=== PATIENT | female | born 1985 | race Caucasian/White ===

== ENCOUNTER 2018-12-23 17:06 | Emergency (ER) | payer OTHER ==
[2018-12-23 17:21] VITALS: BP 130/64; PULSE 105; TEMP 98.2; BMI 24.5
--- NOTE | 2018-12-23 17:24 | PDOC ---
Rapid Medical Evaluation Time Seen by Provider: 12/23/18 17:16 Medical Evaluation: Allergies Allergy/AdvReac Type Severity Reaction Status Date / Time Penicillins Allergy Verified 03/25/13 23:41 12/23/18 17:17 I have performed a brief in-person evaluation of this patient. The patient presents with a chief complaint of: dysuria w/ b/l flank pain, fever and nausea x 1 week, seen in UC 3 days for same and dx w/ UTI, on cipro. Returned to UC today w/ persistent sxs. Of note I called [facility] and told ucx from 3 days ago showed "No Growth". Has h/o gallstones Pertinent physical exam findings:well jeffery w/ HR 105, w/ unremarkable exam I have ordered the following:labs/urine The patient will proceed to the ED for further evaluation. 12/23/18 17:24 12/23/18 17:27 Discharge Disposition - Diagnosis Dysuria - Referrals - Patient Instructions - Post Discharge Activity
[2018-12-23 17:46] LABS: BASO % 0.5 % (0-2.0); HEMATOCRIT 42.6 % (32.4-45.2); HEMOGLOBIN 14.5 GM/dL (10.7-15.3); LYMPH % 21.2 % (8-40); MCH 32.3 pg (25.7-33.7); MEAN PLT VOLUME 9.7 fl (7.5-11.1); MONO % 11.6 % (3.8-10.2); NEUT % 63.7 % (42.8-82.8); PLATELET COUNT 197 K/MM3 (134-434); RBC 4.49 M/mm3 (3.60-5.2); RDW 12.7 % (11.6-15.6); WHITE BLOOD COUNT 3.5 K/mm3 (4.0-10.0)
[2018-12-23 18:09] LABS: BILIRUBIN,TOTAL 0.2 mg/dL (0.2-1); CALCIUM 9.3 mg/dL (8.5-10.1); CREATININE 0.8 mg/dL (0.55-1.3); POTASSIUM 4.1 mmol/L (3.5-5.1); TOT PROT 7.4 g/dl (6.4-8.2)
--- NOTE | 2018-12-23 19:24 | PDOC ---
History of Present Illness - General Chief Complaint: Urinary Problem Stated Complaint: SENT BY PCP Time Seen by Provider: 12/23/18 17:16 History Source: Patient - History of Present Illness Initial Comments: 12/23/18 19:17 33 year old female currently on cipro for pyelonephritis for the last 3 days reports now sinus congestion, cough and bodyaches, lower back pain and suprapubic pain send for evaluation by arianne CORBETT. patient yesterday with low grade tmax 100. today afebrile. denies NVD, chest discomfort, abdominal pain LMP: 12/2018. Past History - Past Medical History Allergies/Adverse Reactions: Allergies Allergy/AdvReac Type Severity Reaction Status Date / Time Penicillins Allergy Verified 12/23/18 17:17 Home Medications: Ambulatory Orders Guaifenesin [Mucinex] 600 mg PO BID PRN #14 tab.er.12h 12/23/18 Ibuprofen 400 mg PO QID PRN #20 tablet 12/23/18 COPD: No - Immunization History Immunization Up to Date: Yes - Suicide/Smoking/Psychosocial Hx Smoking Status: No Smoking History: Never smoked Number of Cigarettes Smoked Daily: 0 Hx Alcohol Use: No Drug/Substance Use Hx: No Review of Systems - Review of Systems Able to Perform ROS?: Yes Is the patient limited Ethiopian proficient: No *Physical Exam - Vital Signs Last Vital Signs Temp Pulse Resp BP Pulse Ox 98.2 F 105 H 18 130/64 97 12/23/18 17:19 12/23/18 17:19 12/23/18 17:19 12/23/18 17:19 12/23/18 17:19 - Physical Exam General Appearance: Yes: Appropriately Dressed HEENT: positive: Pharyngeal Erythema, Nasal Congestion Respiratory/Chest: positive: Lungs Clear, Normal Breath Sounds Cardiovascular: positive: Tachycardia Gastrointestinal/Abdominal: positive: Normal Bowel Sounds, Tender (suprapubic tenderness), Soft Extremity: positive: Normal Capillary Refill, Normal Inspection, Normal Range of Motion Integumentary: positive: Normal Color, Dry, Warm Neurologic: positive: Fully Oriented, Alert ED Treatment Course - LABORATORY CBC & Chemistry Diagram: 12/23/18 17:35 12/23/18 17:35 - ADDITIONAL ORDERS Additional order review: Laboratory Results 12/23/18 12/23/18 12/23/18 17:44 17:44 17:35 Sodium 137 Potassium 4.1 Chloride 102 Carbon Dioxide 29 Anion Gap 7 L BUN 13 Creatinine 0.8 Est GFR (CKD-EPI)AfAm 113.86 Est GFR (CKD-EPI)NonAf 98.24 Random Glucose 102 Calcium 9.3 Total Bilirubin 0.2 AST 24 ALT 34 Alkaline Phosphatase 52 Total Protein 7.4 Albumin 4.0 Urine Color Yellow Cancelled Urine Appearance Clear Cancelled Urine pH Cancelled Urine pH (Auto) 5.0 Ur Specific Millis Cancelled Specific Millis (Auto) 1.015 Urine Protein Cancelled Urine Protein (Auto) Negative Urine Glucose (UA) Cancelled Glucose (UA)(Auto) Negative Urine Ketones Cancelled Urine Ketones (Auto) Negative Urine Blood Cancelled Urine Blood (Auto) Trace-lysed Urine Nitrite Cancelled Urine Nitrite (Auto) Negative Urine Bilirubin Negative Cancelled Urine Urobilinogen Cancelled Urine Urobilinogen (Auto) 0.2 Ur Leukocyte Esterase Cancelled Leukocyte Esterase (Auto) Negative Urine WBC (Auto) Cancelled Urine RBC (Auto) Cancelled Urine Casts (Auto) Cancelled U Pathogenic Cast Auto Cancelled U Epithel Cells (Auto) Cancelled U Sm Round Cell (Auto) Cancelled Urine Crystals (Auto) Cancelled Urine Bacteria (Auto) Cancelled Urine Yeast (Auto) Cancelled Urine HCG, Qual Negative 12/23/18 17:35 RBC 4.49 MCV 95.0 MCHC 34.0 RDW 12.7 MPV 9.7 Neutrophils % 63.7 Lymphocytes % 21.2 Monocytes % 11.6 H Eosinophils % 3.0 Basophils % 0.5 Medical Decision Making - Medical Decision Making 12/23/18 20:44 A: URI with cough; UTI P: rapid strep labs UA UCX *DC/Admit/Observation/Transfer Diagnosis at time of Disposition: URI with cough and congestion, Dysuria - Discharge Dispostion Disposition: HOME - Prescriptions Prescriptions: Guaifenesin [Mucinex] 600 mg PO BID PRN #14 tab.er.12h PRN Reason: Cough Ibuprofen 400 mg PO QID PRN #20 tablet PRN Reason: Pain - Referrals - Patient Instructions Printed Discharge Instructions: DI for Sinusitis Additional Instructions: Drink plenty of fluids. Continue taking Cipro as prescribed by raianne Bella You may take ibuprofen every 6 hours for body aches and pain. We will call you if you urine culture requires a you take a different antibiotics. Your labs today did not show any signs of infection. It is important to follow-up with your doctor as soon as possible. You were given a prescription for Mucinex, for nasal congestion. Sinus congestion is usually caused by a viral illness you may try NyQuil. Use package instructions You may return to the emergency room for any worsening symptoms. - Post Discharge Activity Forms/Work/School Notes: Back to Work
[2018-12-23] MEDS ORDERED: IBUPROFEN 600 MG TABLET (FP) PO ONE ×2 (20:43→20:58)
== END 2018-12-23 21:46 | disposition home or self-care (01) ==
LOC: JER 17:06 → EDSEX 17:06 → JER 21:46
DX: J06.9 Acute upper respiratory infection, unspecified (principal); R05 Cough; R09.89 Other specified symptoms and signs involving the circulatory and respiratory systems; R30.0 Dysuria
CPT/HCPCS: 36415; 80053; 81003; 84703; 85025; 87070; 87086; 87880; 99281-25

== ENCOUNTER 2019-05-22 08:26 | Emergency (ER) | payer BC, OTHER ==
--- NOTE | 2019-05-22 08:46 | RAPID ---
<Yuniel Valenzuela - Last Filed: 05/22/19 14:35> Physical Examination Vital Signs: Vital Signs Temperature 97.9 F 05/22/19 08:32 Pulse Rate 80 05/22/19 08:32 Respiratory Rate 20 05/22/19 08:32 Blood Pressure 105/56 L 05/22/19 08:32 O2 Sat by Pulse Oximetry (%) 95 05/22/19 08:32 Findings/Remarks: RR called to central registration for patient complaint of nausea, lightheadedness. States that pt did not have breakfast in the AM. Was accompanying Constitutional: Yes: Calm HENT: Yes: WNL Neck: Yes: Trachea Midline. No: Lymphadenopathy Cardiovascular: Yes: Regular Rate and Rhythm. No: Murmur Respiratory: Yes: CTA Bilaterally. No: Accessory Muscle Use, Rales, Rhonchi Gastrointestinal: Yes: Soft. No: Tenderness, Rebound Extremities: No: Calf Tenderness Edema: No Peripheral Pulses: Left Radial: 2+, Right Radial: 2+ Neurological: Yes: Alert, Oriented. No: Confusion, Lethargy ...Motor Strength: WNL Psychiatric: Yes: Alert, Oriented Rapid Response - Rapid Response Assessment: 33F with complaint of lightheadedness that was resolving when the rapid response was called. -EKG: reviewed -- NSR -recommend CBC, BMP -- unremarkable -orthostatics -- neg <Kuldeep Jha - Last Filed: 05/24/19 10:21> Physical Examination Vital Signs: 30 mins critical care time; present for entirety of RR and personally verified all exam findings and historical information. Labs: CBC, BMP 05/22/19 09:30 05/22/19 09:30
[2019-05-22] MEDS ORDERED: SODIUM CHLORIDE 0.9% 500 ML INFUS.BAG IV ONE (09:02)
--- NOTE | 2019-05-22 09:02 | PDOC ---
History of Present Illness - General Chief Complaint: Syncope/Near Syncope Stated Complaint: DIZZINESS Time Seen by Provider: 05/22/19 08:47 Past History - Past Medical History Allergies/Adverse Reactions: Allergies Allergy/AdvReac Type Severity Reaction Status Date / Time amoxicillin Allergy Verified 08/21/16 14:45 Penicillins Allergy Verified 12/23/18 17:17 Home Medications: Ambulatory Orders Escitalopram Oxalate [Lexapro -] 20 mg PO DAILY 05/22/19 Progesterone, Micronized [Progesterone] mg PO DAILY 05/22/19 Spironolactone mg PO DAILY 05/22/19 Anemia: No Cardiac Disorders: No COPD: No - Immunization History Immunization Up to Date: Yes - Psycho Social/Smoking Cessation Hx Smoking Status: No Smoking History: Never smoked Have you smoked in the past 12 months: No Number of Cigarettes Smoked Daily: 0 Information on smoking cessation initiated: No Hx Alcohol Use: No Drug/Substance Use Hx: No Substance Use Type: None *Physical Exam - Vital Signs Last Vital Signs Temp Pulse Resp BP Pulse Ox 97.9 F 80 20 105/56 L 95 05/22/19 08:32 05/22/19 08:32 05/22/19 08:32 05/22/19 08:32 05/22/19 08:32 ED Treatment Course - LABORATORY CBC & Chemistry Diagram: 05/22/19 09:30 05/22/19 09:30 Medical Decision Making - Medical Decision Making 05/22/19 09:02 HPI: 33yo F hx PCOS on spironolactone and 10 days of progesterone 2 weeks ago, and MDD on Lexapro, presents by Rapid Response c/o 10min episode of nausea, lightheadedness, hot feeling, and heart racing at 0820 after running to car and back to hospital, sudden onset, resolved by sitting down, exactly the same as prior episodes years ago and 2x this summer (though she did actually experience syncope this summer), told its due to her low blood pressure. Mother and brother have same episodes due to blood pressure. Denies LOC, head injury, headache, vertigo, seizure-like activity including urinary incontinence or tongue biting, confusion, CP, shortness of breath, diaphoresis, abdominal pain, back pain, dysuria, blood in stool, D/C, F/C, vomiting, weakness, numbness/ tingling, vision changes, sick contacts, recent travel, estrogen/OCP use, recent surgeries, hx PE/DVT, hemoptysis, leg swelling, calf tenderness, FHx of sudden cardiac or arrythmia. Denies . Has not eaten or drank water today. Denies stress or anxiety, in hospital for CT scan for father. ROS: Constitutional: Negative for chills, fever, fatigue, diaphoresis. HENT: Negative for sore throat, rhinorrhea, congestion. Eyes: Negative for visual disturbance. Respiratory: Negative for shortness of breath, cough, and wheezing. Cardiovascular: Positive for heart racing. Negative for chest pain and leg swelling. Gastrointestinal: Positive for nausea. Negative for abdominal pain, blood in stool, constipation, diarrhea, and vomiting. Genitourinary: Negative for dysuria, flank pain, and hematuria. Musculoskeletal: Negative for myalgias, back pain, and neck pain. Skin: Negative for rash. Neurological: Positive for light-headedness. Negative for vertigo, syncope, weakness, numbness and headaches. Psychiatric/Behavioral: Negative for behavioral problems and confusion. PE: Gen: Alert, NAD, comfortable-appearing. HEENT: PERRL, EOMI, MMM, NCAT. No conjunctival pallor. Sclera are non-icteric. Oropharynx is clear. CV: Regular rate and rhythm. No murmurs, rubs, or gallops. PULM: No resp distress. CTAB, no wheezes, rales, or rhonchi. ABD: soft, NT/ND, no rebound tenderness or guarding, no CVA tenderness. BACK: No TTP of c/t/l-spine. No step-offs or deformities. MSK: No bony deformities. 2+ pulses in all extremities. NEURO: AAOx3. PERRL. CN 2-12 intact. 5/5 strength in all extremities. Sensation to light touch intact in all extremities. No pronator drift. No dysmetria. No dysdiadochokinesia. No abnormal nystagmus. No skew deviation. Normal gait. EXTREMITIES: No cyanosis. No clubbing. No edema. No calf tenderness. PSYCH: Normal mood and thought pattern. SKIN: Warm and dry. Normal capillary refill. No rashes. No jaundice. MDM: 33yo F hx PCOS on spironolactone and 10 days of progesterone 2 weeks ago, and MDD on Lexapro, presents by Rapid Response with 10min episode of nausea, lightheadedness, hot feeling, and heart racing at 0820 after exertion. Asymptomatic now. Hemodynamically stable but BP 105/56, afebrile, neurologically intact. Presyncope most consistent with vasovagal or orthostatic presyncope - orthostatic VS and IVF. Low concern for cardiac etiology due to lack of CP, SOB, FHx, or diaphoresis, but assess and r/o ACS/WV or arrythmias ( WPW, LGL, Brugada, long/short QT interval, HOCM) with EKG. No SOB, CP, or tachycardia concerning for PE, Wells 0, PERC rules out PE - no further testing indicated for PE. Also consider infectious etiologies, anemia, , or metabolic derangements - r/o w/CMP, CBC, and urine . No seizure-like activity, head injury, or LOC. -EKG -CBC, BMP, Upreg -Orthostatic VS -1L NS -Dispo: likely d/c home pending w/u 05/22/19 09:30 EKG reviewed: NSR 72bpm, QTc 416, MT interval 160, normal axis, no TWIs, no ST elevations or depressions. No evidence of arrythmia, ischemia, Muñiz-Parkinson- White (delta wave), Oohv-Kggacb-Vfatwq (shortened MT interval), Brugada syndrome , long or short QT interval, HOCM. 05/22/19 10:06 Labs reviewed. No concerning findings. Orthostatic BPs: supine 96/64, sit 98/58, stand 102/65 05/22/19 10:56 Upreg negative. Pt asymptomatic since arrival in ED. Will dc home with PCP f/u. Return precautions given. Pt understands all dc instructions and all questions were answered. Discharge - Discharge Information Problems reviewed: Yes Clinical Impression/Diagnosis: Pre-syncope Condition: Improved Disposition: HOME - Admission No - Follow up/Referral - Patient Discharge Instructions Patient Printed Discharge Instructions: DI for Syncope in Adults (Fainting) Additional Instructions: You have been seen in the Emergency Department for your episode of dizziness and near-fainting (pre-syncope). Your EKG and labs show no signs concerning for an emergent condition such as a heart attack, abnormal heart rhythm, anemia, or infection. The cause of your episode is uncertain but it was most likely what's called vasovagal (pre)syncope - see below for more information on this. Follow-up with your primary care doctor within 1 week for further evaluation and check-up. Return to the ED immediately if you experience chest pain, difficulty breathing , dizziness, fainting, vomiting, or any other new or worsening symptom. Vasovagal syncope (fainting): To remain conscious, a supply of oxygen-rich blood must be pumped to the brain without interruption. If the brain is deprived of this blood supply, even for a brief period, loss of consciousness (passing out) will occur. One of the most common types of syncope is called vasovagal syncope, which is the most common cause of reflex syncope. A variety of conditions can trigger vasovagal syncope, including physical or psychological stress, dehydration, bleeding, or pain. The heart rate may slow dramatically at the time of the faint, and the blood vessels (mainly the veins) in the body expand, causing blood to pool in the lower extremities and the bowels, resulting in less blood return to the heart and a low blood pressure (hypotension). This causes a decrease in blood flow to the brain. In some cases, vasovagal syncope is triggered by an emotional response to a stimulus, such as fear of injury, heat exposure, the sight of blood, or extreme pain. In other cases, it is caused by abnormal nervous system responses to activities such as urinating, having a bowel movement, coughing, or swallowing. In still other cases, no trigger can be identified. In most cases of vasovagal syncope, you have some warning that you are near fainting. These signs include dizziness, feeling hot or cold, nausea, pale skin , "tunnel-like" vision, disturbance of hearing, and profuse sweating. After the episode, symptoms may continue because of continued low blood pressure. Some people feel extremely tired. - Post Discharge Activity
[2019-05-22 09:40] LABS: BASO % 0.6 % (0-2.0); EOS % 2.2 % (0-4.5); HEMATOCRIT 41.5 % (32.4-45.2); HEMOGLOBIN 14.1 GM/dL (10.7-15.3); LYMPH % 23.2 % (8-40); MCH 32.2 pg (25.7-33.7); MEAN CELL VOLUME 94.7 fl (80-96); MEAN PLT VOLUME 9.7 fl (7.5-11.1); MONO % 6.6 % (3.8-10.2); NEUT % 67.4 % (42.8-82.8); PLATELET COUNT 260 K/MM3 (134-434); RBC 4.38 M/mm3 (3.60-5.2); RDW 12.4 % (11.6-15.6); WHITE BLOOD COUNT 6.4 K/mm3 (4.0-10.0)
[2019-05-22 09:59] VITALS: TEMP 97.9; BMI 24.5
[2019-05-22 10:05] LABS: BLOOD UREA NITROGEN 19.2 mg/dL (7-18); CALCIUM 8.8 mg/dL (8.5-10.1); CREATININE 0.8 mg/dL (0.55-1.3); POTASSIUM 3.9 mmol/L (3.5-5.1)
--- NOTE | 2019-05-22 11:17 | PDOC ---
Attending Attestation - Resident Resident Name: Debby Berger - ED Attending Attestation I have performed the following: I have examined & evaluated the patient, The case was reviewed & discussed with the resident, I agree w/resident's findings & plan, Exceptions are as noted - HPI HPI: 05/22/19 14:45 33 years old with near syncopal episode history of similar approximately 2-3 episodes per year. Now asymptomatic - Physicial Exam PE: 05/22/19 11:09 Vitals: Triage Vital signs reviewed General Appearance: No acute distress, well nourished well developed, Head: Atraumatic, Eyes: Pupils equal reactive round, extraocular movement intact Chest Wall: Nontender Cardiac: Regular rate and rhythym, no murmurs, no rubs, no gallops, Lungs: Clear to auscultation bilateral, good air movement bilaterally, Abdomen: Soft, non distended, normal bowel sounds, non tender to palpation Extremities: Full range of motion to all extremities, no cyanosis, clubbing, or edema Skin: Warm and dry, no rashes or lesions, no rash, no petechiae Neuro: AOX3; cranial Nerves 2-12 grossly intact, strength intact to all extremities, sensation intact to all extremities, gait normal Psych: Normal mood, normal affect - Medical Decision Making 05/22/19 11:09 Well-appearing no apparent distress emergency room with near syncopal event patient has approximately 2-3 of these episodes every year where she feels dizzy lightheaded and warm has seen her doctor for this in the past was told that her blood pressure is borderline low Presented to the emergency department after near syncopal event her EKG is nonischemic it demonstrates no evidence of WPW Brugada or prolonged QT it is sinus rhythm at 72 bpm with normal intervals Laboratory analysis unremarkable she looks and feels well is asking to go home she will follow-up with her doctor Findings, the need for follow-up and strict return instructions discussed with patient. Also Heart Score/ECG Review - ECG Impressions Comment:: 05/22/19 14:39 EKG performed at 839 demonstrates normal sinus rhythm no ST elevations or T wave inversions no evidence of WPW, Brugada, prolonged QT Interpreted by me.
[2019-05-22 11:40] VITALS: BP 99/53; PULSE 72
--- NOTE | 2019-05-22 12:09 | EKG ---
Test Reason : Blood Pressure : / mmHG Vent. Rate : 072 BPM Atrial Rate : 072 BPM P-R Int : 160 ms QRS Dur : 088 ms QT Int : 380 ms P-R-T Axes : 063 075 037 degrees QTc Int : 416 ms NORMAL SINUS RHYTHM NORMAL ECG NO PREVIOUS ECGS AVAILABLE Confirmed by ADRI MCNAIR MD ([id number]) on 05/22/2019 12:09:29 PM Referred By: Confirmed By:ADRI MCNAIR MD
== END 2019-05-22 11:51 | disposition home or self-care (01) ==
LOC: JER 08:26
PROC: 3E0337Z Introduction of Electrolytic and Water Balance Substance into Peripheral Vein, Percutaneous Approach (ICD-10-PCS; principal; 2019-05-22)
DX: R55 Syncope and collapse (principal); Z88.8 Allergy status to other drugs, medicaments and biological substances; Z88.0 Allergy status to penicillin
CPT/HCPCS: 36415; 80048; 84703; 85025; 93005; 93010; 99284-25

== ENCOUNTER 2021-06-16 23:10 | Emergency (ER) | payer BC, OTHER ==
[2021-06-16] MEDS ORDERED: ACETAMINOPHEN 1000 MG/100 ML VIAL IVPB ONE (23:34)
[2021-06-16 23:38] VITALS: BP 115/55; PULSE 80; TEMP 98.7; BMI 24.5
[2021-06-16] MEDS ORDERED: ACETAMINOPHEN INJECTION 100 ML IVPB ONE (23:39)
[2021-06-17 00:36] LABS: BASO % 0.3 % (0-2.0); EOS % 1.5 % (0-4.5); HEMATOCRIT 36.9 % (32.4-45.2); HEMOGLOBIN 12.8 GM/dL (10.7-15.3); LYMPH % 25.7 % (8-40); MCH 31.8 pg (25.7-33.7); MCHC 34.6 g/dl (32.0-36.0); MEAN CELL VOLUME 91.9 fl (80-96); MEAN PLT VOLUME 9.4 fl (7.5-11.1); MONO % 7.1 % (3.8-10.2); NEUT % 65.4 % (42.8-82.8); PLATELET COUNT 305 10^3/uL (134-434); RBC 4.02 M/mm3 (3.60-5.2); RDW 14.6 % (11.6-15.6); WHITE BLOOD COUNT 7.4 K/mm3 (4.0-10.0)
[2021-06-17 01:02] LABS: EPI CELLS >36 /uL (0-25.1); HYALINE CASTS 4 /uL (0-3.1); URINE APPEARANCE CLOUDY; URINE BACTERIA 918 /uL (0-1359); URINE BILIRUBIN NEGATIVE (NEGATIVE); URINE COLOR YELLOW; URINE GLUCOSE (UA) NEGATIVE (NEGATIVE); URINE KETONE NEGATIVE (NEGATIVE); URINE LEUK ESTERASE 1+ (NEGATIVE); URINE NITRITE NEGATIVE (NEGATIVE); URINE PROTEIN NEGATIVE (NEGATIVE); URINE RBC 7 /uL (0-23.9); URINE UROBILINOGEN 0.2 mg/dL (0.2-1.0); URINE WBC 69 /uL (0-25.8)
[2021-06-17 01:43] LABS: ALBUMIN 3.7 g/dl (3.4-5.0); BILIRUBIN,TOTAL 0.2 mg/dL (0.2-1); BLOOD UREA NITROGEN 13.6 mg/dL (7-18); CALCIUM 9.1 mg/dL (8.5-10.1); CREATININE 0.7 mg/dL (0.55-1.3); TOT PROT 7.5 g/dl (6.4-8.2)
[2021-06-17] MEDS ORDERED: SULFAMETHOXAZOLE/TRIMETHOPRIM 800MG/160MG D.S. TABLET PO ONE (02:02)
[2021-06-17] MEDS ORDERED: SULFAMETHOXAZOLE/TRIMETHOPRIM 800MG/160MG D.S. TABLET ONE (02:05)
== END 2021-06-17 02:07 | disposition home or self-care (01) ==
LOC: FER 23:10
PROC: 3E0333Z Introduction of Anti-inflammatory into Peripheral Vein, Percutaneous Approach (ICD-10-PCS; principal; 2021-06-16)
DX: N39.0 Urinary tract infection, site not specified (principal); R07.9 Chest pain, unspecified
CPT/HCPCS: 36415; 71046-TC-FY; 80053; 81003; 84703; 85025; 87086; 96374; 99284-25; J0131

== ENCOUNTER 2021-07-25 09:25 | Day surgery (SDC) | payer BC, OTHER ==
[2021-07-25] MEDS ORDERED: SODIUM CHLORIDE 1,000 ML IV STA (09:58)
[2021-07-25] MEDS ORDERED: METOCLOPRAMIDE HCL INJECTION 10 MG/2 ML VIAL IVPB ONE (09:58)
[2021-07-25] MEDS ORDERED: FAMOTIDINE 20 MG/50 ML IVPB 20 MG/50 ML MG IVPB ONE ×2 (09:58→10:34)
[2021-07-25] MEDS ORDERED: ACETAMINOPHEN 1000 MG/100 ML VIAL IVPB ONE (09:58)
[2021-07-25] MEDS ORDERED: METOCLOPRAMIDE HCL INJECTION 10 MG/2 ML VIAL ONE (10:33)
[2021-07-25] MEDS ORDERED: ACETAMINOPHEN INJECTION 100 ML IVPB ONE (10:34)
[2021-07-25 11:48] LABS: URINE APPEARANCE CLOUDY; URINE BILIRUBIN NEGATIVE (NEGATIVE); URINE COLOR YELLOW; URINE GLUCOSE (UA) NEGATIVE (NEGATIVE); URINE KETONE NEGATIVE (NEGATIVE); URINE LEUK ESTERASE NEGATIVE (NEGATIVE); URINE NITRITE NEGATIVE (NEGATIVE); URINE PROTEIN NEGATIVE (NEGATIVE); URINE UROBILINOGEN 0.2 mg/dL (0.2-1.0)
[2021-07-25 11:54] LABS: BASO % 0.3 % (0-2.0); EOS % 0.6 % (0-4.5); HEMATOCRIT 38.4 % (32.4-45.2); HEMOGLOBIN 12.9 GM/dL (10.7-15.3); LYMPH % 8.7 % (8-40); MCHC 33.6 g/dl (32.0-36.0); MEAN CELL VOLUME 95.4 fl (80-96); MEAN PLT VOLUME 9.7 fl (7.5-11.1); MONO % 4.9 % (3.8-10.2); NEUT % 85.5 % (42.8-82.8); PLATELET COUNT 247 10^3/uL (134-434); RBC 4.02 M/mm3 (3.60-5.2); RDW 15.6 % (11.6-15.6); WHITE BLOOD COUNT 9.9 K/mm3 (4.0-10.0)
[2021-07-25 12:15] LABS: ALBUMIN 3.8 g/dl (3.4-5.0); BLOOD UREA NITROGEN 14.4 mg/dL (7-18); CALCIUM 8.9 mg/dL (8.5-10.1)
[2021-07-25 12:17] LABS: CREATININE 0.6 mg/dL (0.55-1.3)
[2021-07-25 12:20] LABS: BILIRUBIN,TOTAL 0.3 mg/dL (0.2-1); TOT PROT 7.4 g/dl (6.4-8.2)
[2021-07-25] MEDS ORDERED: CLINDAMYCIN 900 MG PREMIX IVPB 900 MG/50 ML BAG IVPB ONE ×2 (14:42→14:51)
[2021-07-25] MEDS ORDERED: LACTATED RINGERS SOLUTION 1,000 ML/1,000 ML INFUS.BAG IV SCH (15:30)
[2021-07-25] MEDS ORDERED: PROPOFOL 20 ML ONE (18:46)
[2021-07-25] MEDS ORDERED: ROCURONIUM BROMIDE 50 MG/5 ML SYRINGE ONE (18:46)
[2021-07-25] MEDS ORDERED: MIDAZOLAM HCL 2 MG/2 ML SINGLE DOSE VIAL ONE (18:46)
[2021-07-25] MEDS ORDERED: fentaNYL CITRATE 250 MCG/5 ML VIAL ONE (18:46)
[2021-07-25] MEDS ORDERED: SUCCINYLCHOLINE CHLORIDE 200 MG/10 ML SYRINGE ONE (19:12)
[2021-07-25] MEDS ORDERED: CEFOXITIN SODIUM 1 GM IVPB ONE (19:13)
[2021-07-25] MEDS ORDERED: BUPIVACAINE HCL/PF 0.5% (5MG/ML) 10 ML VIAL ONE (19:14)
[2021-07-25] MEDS ORDERED: PROMETHAZINE HCL 25 MG/1 ML VIAL IVPUSH PRN (19:30)
[2021-07-25] MEDS ORDERED: ONDANSETRON 4 MG/2 ML VIAL IVPUSH PRN (19:30)
[2021-07-25] MEDS ORDERED: cefOXitin SODIUM 2 GM VIAL (RESTRICTED TO ID) IVPB ONE (19:30)
[2021-07-25] MEDS ORDERED: BUPIVACAINE HCL/PF 0.5% (5 MG/ML) 30 ML VIAL IJ ONE (19:46)
[2021-07-25] MEDS ORDERED: NEOSTIGMINE METHYLSULFATE 0.5 MG/ML - 10 ML MDV ONE (19:54)
[2021-07-25] MEDS: oxyCODONE HCL 5 MG TABLET PO PRN (21:33)
[2021-07-25] MEDS ORDERED: morphine SULFATE 4 MG/ML VIAL IVPUSH ONE (22:12)
[2021-07-25] MEDS: LACTATED RINGERS SOLUTION 1,000 ML IV SCH (22:31)
[2021-07-26 01:01] VITALS: BMI 32.1
[2021-07-26] MEDS: oxyCODONE HCL 5 MG TABLET PO PRN ×2 (04:55→13:18)
[2021-07-26] MEDS: LACTATED RINGERS SOLUTION 1,000 ML IV SCH (08:03)
[2021-07-26 09:41] LABS: HEMOGLOBIN 12.1 GM/dL (10.7-15.3); MCH 32.5 pg (25.7-33.7); MCHC 33.6 g/dl (32.0-36.0); MEAN CELL VOLUME 96.6 fl (80-96); MEAN PLT VOLUME 9.4 fl (7.5-11.1); MONO % 6.5 % (3.8-10.2); NEUT % 83.5 % (42.8-82.8); PLATELET COUNT 262 10^3/uL (134-434); RBC 3.73 M/mm3 (3.60-5.2); RDW 15.4 % (11.6-15.6); WHITE BLOOD COUNT 5.2 K/mm3 (4.0-10.0)
[2021-07-26 10:09] LABS: CALCIUM 8.8 mg/dL (8.5-10.1)
[2021-07-26 10:10] LABS: ALBUMIN 3.2 g/dl (3.4-5.0); BLOOD UREA NITROGEN 5.2 mg/dL (7-18); MAGNESIUM 2.3 mg/dL (1.8-2.4)
[2021-07-26 10:14] LABS: BILIRUBIN,TOTAL 0.4 mg/dL (0.2-1); CREATININE 0.6 mg/dL (0.55-1.3); PHOSPHOROUS 2.7 mg/dL (2.5-4.9); TOT PROT 6.4 g/dl (6.4-8.2)
[2021-07-26 11:56] VITALS: TEMP 98.5
[2021-07-26 15:05] VITALS: BP 105/60; PULSE 80
== END 2021-07-26 16:27 | disposition home or self-care (01) ==
LOC: JASUSAT 09:25 → JER 09:25 → JASUSAT 14:39 → UNDOADMIN 18:34 → JERBED 18:34 → J5S 21:21 → JERBED 21:21 → JASUSAT 07-26 16:27
PROVIDERS: ATTEND Internal Medicine
PROC: 0DTJ4ZZ Resection of Appendix, Percutaneous Endoscopic Approach (ICD-10-PCS; principal; 2021-07-25 15:30)
DX: K35.80 Unspecified acute appendicitis (principal)
CPT/HCPCS: 36415; 74177-TC; 80053; 81003; 83690; 83735; 84100; 84703; 85025; 86850; 86900; 86901; 87086; 88304-TC; 94760; 99285-25; C9803; J0131; Q9967; U0003; U0005

== ENCOUNTER 2021-07-30 21:00 | Observation (INO) | payer BC, OTHER ==
[2021-07-30 21:05] VITALS: BMI 31.1
[2021-07-30] MEDS ORDERED: morphine CARPU-JECT 4 MG/1 ML DISP.SYRIN IVPUSH ONE (23:47)
[2021-07-30] MEDS ORDERED: morphine SULFATE 4 MG/ML VIAL ONE (23:49)
[2021-07-31 00:55] LABS: BASO % 0.3 % (0-2.0); EOS % 4.8 % (0-4.5); HEMATOCRIT 40.1 % (32.4-45.2); LYMPH % 21.1 % (8-40); MCH 33.3 pg (25.7-33.7); MCHC 34.8 g/dl (32.0-36.0); MEAN CELL VOLUME 95.5 fl (80-96); MONO % 8.6 % (3.8-10.2); NEUT % 65.2 % (42.8-82.8); PLATELET COUNT 332 10^3/uL (134-434); RBC 4.19 M/mm3 (3.60-5.2); WHITE BLOOD COUNT 6.1 K/mm3 (4.0-10.0)
[2021-07-31 01:00] LABS: URINE APPEARANCE CLOUDY; URINE BILIRUBIN NEGATIVE (NEGATIVE); URINE COLOR YELLOW; URINE GLUCOSE (UA) NEGATIVE (NEGATIVE); URINE KETONE NEGATIVE (NEGATIVE); URINE LEUK ESTERASE NEGATIVE (NEGATIVE); URINE NITRITE NEGATIVE (NEGATIVE); URINE PROTEIN NEGATIVE (NEGATIVE); URINE UROBILINOGEN 0.2 mg/dL (0.2-1.0)
[2021-07-31 01:15] LABS: CALCIUM 9.1 mg/dL (8.5-10.1)
[2021-07-31 01:16] LABS: ALBUMIN 3.7 g/dl (3.4-5.0); BLOOD UREA NITROGEN 15.4 mg/dL (7-18)
[2021-07-31 01:19] LABS: CREATININE 0.8 mg/dL (0.55-1.3)
[2021-07-31 01:20] LABS: BILIRUBIN,TOTAL 0.2 mg/dL (0.2-1)
[2021-07-31 01:21] LABS: TOT PROT 7.8 g/dl (6.4-8.2)
[2021-07-31] MEDS ORDERED: SODIUM CHLORIDE 0.9% 500 ML INFUS.BAG IV ONE (01:57)
[2021-07-31] MEDS ORDERED: LACTULOSE 20 GM/30 ML UDC (FOR ORAL USE ONLY) PO ONE (02:32)
[2021-07-31] MEDS ORDERED: POLYETHYLENE GLYCOL 3350 119 GM BTL PO ONE (02:32)
[2021-07-31] MEDS ORDERED: LACTULOSE 20 GM/30 ML UDC (FOR ORAL USE ONLY) ONE (02:33)
[2021-07-31] MEDS ORDERED: POLYETHYLENE GLYCOL (HEALTHYLAX) 3350 17 GM PACKET ONE ×2 (02:33→06:34)
[2021-07-31] MEDS ORDERED: CLINDAMYCIN 600MG PREMIX IVPB 600 MG/50 ML BAG IVPB ONE ×2 (02:42)
[2021-07-31] MEDS ORDERED: diphenhydrAMINE HCL 25 MG CAPSULE (FP) PO ONE ×3 (04:30→13:49)
[2021-07-31] MEDS ORDERED: ACETAMINOPHEN INJECTION 100 ML IVPB ONE (05:14)
[2021-07-31] MEDS: ACETAMINOPHEN 1000 MG/100 ML VIAL IVPB PRN ×2 (06:00→14:32)
[2021-07-31] MEDS: POLYETHYLENE GLYCOL (HEALTHYLAX) 3350 17 GM PACKET PO SCH ×3 (06:52→21:29)
[2021-07-31 08:56] LABS: HEMATOCRIT 34.9 % (32.4-45.2); HEMOGLOBIN 12.1 GM/dL (10.7-15.3); MCH 33.2 pg (25.7-33.7); MCHC 34.7 g/dl (32.0-36.0); MEAN CELL VOLUME 95.8 fl (80-96); MEAN PLT VOLUME 8.8 fl (7.5-11.1); PLATELET COUNT 279 10^3/uL (134-434); RBC 3.64 M/mm3 (3.60-5.2); RDW 15.4 % (11.6-15.6); WHITE BLOOD COUNT 4.9 K/mm3 (4.0-10.0)
[2021-07-31 09:10] LABS: CALCIUM 8.4 mg/dL (8.5-10.1)
[2021-07-31 09:11] LABS: BLOOD UREA NITROGEN 13.5 mg/dL (7-18)
[2021-07-31 09:15] LABS: CREATININE 0.7 mg/dL (0.55-1.3)
[2021-07-31] MEDS ORDERED: METHOTREXATE 2.5 MG TABLET PO SCH ×2 (12:45→22:00)
[2021-07-31] MEDS: diphenhydrAMINE HCL 25 MG CAPSULE (FP) PO PRN ×2 (13:51→20:24)
[2021-07-31] MEDS: HYDROCORTISONE 1% TOPICAL CREAM 30 GM TUBE TP PRN ×2 (15:33→18:22)
[2021-08-01] MEDS: ACETAMINOPHEN 325 MG TABLET (FP) PO PRN ×2 (00:06→15:31)
[2021-08-01] MEDS: diphenhydrAMINE HCL 25 MG CAPSULE (FP) PO PRN (02:14)
[2021-08-01] MEDS: POLYETHYLENE GLYCOL (HEALTHYLAX) 3350 17 GM PACKET PO SCH ×2 (06:16→15:31)
[2021-08-01 09:42] LABS: BASO % 0.6 % (0-2.0); EOS % 6.4 % (0-4.5); HEMATOCRIT 37.8 % (32.4-45.2); HEMOGLOBIN 12.9 GM/dL (10.7-15.3); LYMPH % 26.4 % (8-40); MCH 32.9 pg (25.7-33.7); MEAN CELL VOLUME 96.9 fl (80-96); MEAN PLT VOLUME 9.2 fl (7.5-11.1); MONO % 7.1 % (3.8-10.2); NEUT % 59.5 % (42.8-82.8); PLATELET COUNT 303 10^3/uL (134-434); RDW 15.2 % (11.6-15.6); WHITE BLOOD COUNT 5.1 K/mm3 (4.0-10.0)
[2021-08-01 09:45] LABS: BLOOD UREA NITROGEN 9.4 mg/dL (7-18)
[2021-08-01 09:50] LABS: CALCIUM 8.9 mg/dL (8.5-10.1)
[2021-08-01 09:51] LABS: ALBUMIN 3.4 g/dl (3.4-5.0)
[2021-08-01 09:54] LABS: CREATININE 0.7 mg/dL (0.55-1.3)
[2021-08-01 09:56] LABS: BILIRUBIN,TOTAL 0.4 mg/dL (0.2-1); TOT PROT 6.6 g/dl (6.4-8.2)
[2021-08-01] MEDS ORDERED: PETROLATUM, WHITE 30 GM TUBE TP SCH (10:00)
[2021-08-01 10:04] VITALS: TEMP 98.5
[2021-08-01 18:18] VITALS: BP 80/60; PULSE 80
[2021-08-07] MEDS ORDERED: METHOTREXATE 2.5 MG TABLET PO SCH (10:00)
== END 2021-08-01 18:20 | disposition home or self-care (01) ==
LOC: JER 21:00 → JERBED 07-31 02:31 → INTOOBSV 07-31 02:31 → J5S 07-31 14:01
PROVIDERS: ADMIT Internal Medicine
PROC: 3E033GC Introduction of Other Therapeutic Substance into Peripheral Vein, Percutaneous Approach (ICD-10-PCS; principal; 2021-07-31)
PROC: 3E033NZ Introduction of Analgesics, Hypnotics, Sedatives into Peripheral Vein, Percutaneous Approach (ICD-10-PCS; 2021-07-31)
DX: T78.49XA Other allergy, initial encounter (principal); T88.8XXA Other specified complications of surgical and medical care, not elsewhere classified, initial encounter; Y83.8 Other surgical procedures as the cause of abnormal reaction of the patient, or of later complication, without mention of misadventure at the time of the procedure; Y82.8 Other medical devices associated with adverse incidents; Y92.9 Unspecified place or not applicable; K59.00 Constipation, unspecified; M06.9 Rheumatoid arthritis, unspecified; E28.2 Polycystic ovarian syndrome; J45.909 Unspecified asthma, uncomplicated; Z98.890 Other specified postprocedural states
CPT/HCPCS: 36415; 74177-TC; 80048; 80053; 81003; 83605; 84703; 85025; 85027; 87040; 87086; 96365; 96375; 99285-25; C9803; G0378; J0131; J8610; Q9967; U0003; U0005